=== PATIENT | male | born 1940 | race Caucasian/White ===

== ENCOUNTER 2017-07-19 16:18 | Inpatient (IN) ==
[2017-07-19] MEDS ORDERED: IOPAMIDOL 100 ML BOTTLE IV ONE (16:19)
[2017-07-19] MEDS ORDERED: DILTIAZEM 25 MG/5 ML VIAL IV ONE (16:41)
--- NOTE | 2017-07-19 16:43 | Emergency Department Note ---
General Adult HPI - General Chief complaint: Extremity Problem,Nontraumatic Stated complaint: Bilat and and leg pain Time Seen by Provider: 07/19/17 16:20 Source: patient, family Mode of arrival: ambulatory Limitations: no limitations - History of Present Illness HPI Narrative: This patient comes in with a complaint of pain in both arms and both legs and was found to be in atrial fibrillation which he was unaware of. He has never had that rhythm as far as he knows. He denies chest pain shortness of breath nausea. - Related Data Previous Rx's Medication Instructions Recorded metformin 500 mg tablet 500 mg PO BID #60 tab 05/05/16 metolazone 5 mg tablet 5 mg PO QDAY #30 tab 07/11/17 Allergies Allergy/AdvReac Type Severity Reaction Status Date / Time codeine Allergy Mild Unknown Verified 07/19/17 16:19 Review of Systems All systems ED: reviewed and negative except as stated. Past Medical History - Past Medical History [facility] Narrative: Medical History Bronchitis (Acute) Peripheral edema (Chronic) Hypokalemia (Acute) Tachycardia (Chronic) Pleural effusion (Chronic) Gout (Chronic) Dysmetabolic syndrome X (Chronic) Diabetes mellitus, type II (Chronic) Congestive heart failure (Chronic) Atrial fibrillation (Chronic) Past Surgical History No pertinent past surgical history (Chronic) Family History Mother Malignant neoplasm of brain Essential hypertension Father Malignant neoplasm of prostate Medical history: Reports: atrial fibrillation, CHF, DM, other - Social History smoking status: Former smoker Physical Exam Limitations: no limitations General appearance: alert Head: atraumatic Eye: Present: normal appearance ENT: normal exam Neck: Present: normal inspection Chest: Present: normal inspection Respiratory: Present: normal lung sounds bilaterally Cardiovascular: Present: regular rate, normal rhythm, normal heart sounds Abdominal: Present: soft. Absent: distention, tenderness Extremities: Present: pedal edema, pretibial edema Neurological: Present: alert Psychiatric: Present: normal affect, normal mood Skin: Present: warm, dry, intact Course Vital Signs Temperature 97.5 F 07/19/17 16:19 Pulse Rate 140 H 07/19/17 16:19 Respiratory Rate 16 07/19/17 16:19 Blood Pressure 137/80 07/19/17 16:19 Pulse Oximetry (%) 97 07/19/17 16:19 Temperature 97.5 F 07/19/17 16:19 Pulse Rate 140 H 07/19/17 16:19 Respiratory Rate 16 07/19/17 16:19 Blood Pressure 137/80 07/19/17 16:19 Pulse Oximetry (%) 97 07/19/17 16:19 Medical Decision Making - MDM Narrative Medical decision making narrative: CTA of chest was negative for PE and venous Doppler negative for DVT. Initial troponin was negative. Patient was started on diltiazem and his heart rate is maintained between 101 10. He will be admitted to the hospital. - Lab Data Lab results reviewed: Yes I reviewed the patient's lab results. Result diagrams: 07/19/17 16:48 07/19/17 16:48 Lab Results 07/19/17 07/19/17 07/19/17 Range/Units 16:48 16:48 16:48 WBC 10.3 (4.5-11.0) K/mcL RBC 4.42 L (4.50-5.90) M/mcL Hgb 12.4 L (13.5-16.5) g/dL Hct 37.6 L (41.0-55.0) % MCV 84.9 (80.0-100.0) fL MCH 28.2 (26.0-34.0) pg MCHC 33.1 (31.0-36.0) g/dL RDW 14.7 H (11.5-14.5) % Plt Count 399 (140-440) K/mcL MPV 7.3 L (7.4-10.4) fL Gran % 73.1 (38.0-78.0) % Lymph % (Auto) 8.8 L (15.5-49.0) % [place] % (Auto) 15.6 H (1.0-12.0) % Eos % (Auto) 2.3 (0.0-7.0) % Baso % (Auto) 0.2 (0.0-2.0) % Gran # 7.6 (1.8-8.0) K/mcL Lymph # (Auto) 0.9 L (1.5-4.8) K/mcL [place] # (Auto) 1.6 H (0.1-0.9) K/mcL Eos # (Auto) 0.2 (0.0-0.7) K/mcL Baso # (Auto) 0 (0.0-0.3) K/mcL D-Dimer 4.16 H (0.00-0.40) ug/ml Sodium 133 (133-145) mmol/L Potassium 3.3 (3.3-5.1) mmol/L Chloride 86 L (96-108) mmol/L Carbon Dioxide 32 H (22-30) mmol/L Anion Gap 15.0 (8-16) BUN 17 (8-23) mg/dl Creatinine 0.8 (0.7-1.2) mg/dl GFR Calculation 86 Glucose 85 (70-105) mg/dL Calcium 9.0 (8.6-10.4) mg/dl Total Bilirubin 0.6 (0.0-1.0) mg/dL AST 16 (0-37) U/l ALT 11 (0-40) U/l Alkaline Phosphatase 86 (39-117) U/L Troponin T (0-0.03) ng/ml NT-Pro-B Natriuret Pep 897.9 H (0-450) pg/ml Total Protein 7.4 (5.9-8.4) gm/dL Albumin 3.5 (3.2-5.2) gm/dL Globulin 3.9 H (2.2-3.7) gm/dL Albumin/Globulin Ratio 0.9 L (1.0-2.3) 07/19/17 Range/Units 16:48 WBC (4.5-11.0) K/mcL RBC (4.50-5.90) M/mcL Hgb (13.5-16.5) g/dL Hct (41.0-55.0) % MCV (80.0-100.0) fL MCH (26.0-34.0) pg MCHC (31.0-36.0) g/dL RDW (11.5-14.5) % Plt Count (140-440) K/mcL MPV (7.4-10.4) fL Gran % (38.0-78.0) % Lymph % (Auto) (15.5-49.0) % [place] % (Auto) (1.0-12.0) % Eos % (Auto) (0.0-7.0) % Baso % (Auto) (0.0-2.0) % Gran # (1.8-8.0) K/mcL Lymph # (Auto) (1.5-4.8) K/mcL [place] # (Auto) (0.1-0.9) K/mcL Eos # (Auto) (0.0-0.7) K/mcL Baso # (Auto) (0.0-0.3) K/mcL D-Dimer (0.00-0.40) ug/ml Sodium (133-145) mmol/L Potassium (3.3-5.1) mmol/L Chloride (96-108) mmol/L Carbon Dioxide (22-30) mmol/L Anion Gap (8-16) BUN (8-23) mg/dl Creatinine (0.7-1.2) mg/dl GFR Calculation Glucose (70-105) mg/dL Calcium (8.6-10.4) mg/dl Total Bilirubin (0.0-1.0) mg/dL AST (0-37) U/l ALT (0-40) U/l Alkaline Phosphatase (39-117) U/L Troponin T < 0.01 (0-0.03) ng/ml NT-Pro-B Natriuret Pep (0-450) pg/ml Total Protein (5.9-8.4) gm/dL Albumin (3.2-5.2) gm/dL Globulin (2.2-3.7) gm/dL Albumin/Globulin Ratio (1.0-2.3) - Radiology Data Radiology results reviewed: Yes I reviewed the patient's radiology results. Disposition Pt seen by [facility]/PA only: No Clinical Impression: Atrial fibrillation Disposition: Xfer As Inpt ([facility]) Condition: Fair Referrals: Joni Hanna PA-C [Primary Care Provider] - Time of Disposition: 19:58
[2017-07-19] MEDS ORDERED: DILTIAZEM 125 MG in DEXTROSE 5% IN WATER 100 ML IV SCH (16:45)
[2017-07-19] MEDS: fentaNYL 100 MCG/2 ML VIAL IV PRN ×3 (17:02→18:54)
--- NOTE | 2017-07-19 17:10 | XRay Report ---
CLINICAL INFORMATION: Atrial fibrillation COMPARISON: 12/05/2005 FINDINGS: Moderate cardiomegaly has increased. Mediastinum and pulmonary vessels are normal. Is minor atelectasis in the right base. Remainder the lungs are clear. No effusions IMPRESSION: Moderate cardiomegaly - increasing. No evidence CHF. Minor atelectasis right base Interpreted and Authenticated by: Cooepr Zhang 07/19/17
[2017-07-19 17:23] LABS: Basophils # (Auto) 0 K/mcL (0.0-0.3); Basophils % (Auto) 0.2 % (0.0-2.0); Eosinophils # (Auto) 0.2 K/mcL (0.0-0.7); Eosinophils % (Auto) 2.3 % (0.0-7.0); Granulocytes % (Auto) 73.1 % (38.0-78.0); Lymphocytes # (Auto) 0.9 K/mcL (1.5-4.8); Lymphocytes % (Auto) 8.8 % (15.5-49.0); Mean Cell Volume 84.9 fL (80.0-100.0); Mean Corpuscular HGB Conc 33.1 g/dL (31.0-36.0); Mean Corpuscular Hemoglobin 28.2 pg (26.0-34.0); Monocytes # (Auto) 1.6 K/mcL (0.1-0.9); Monocytes % (Auto) 15.6 % (1.0-12.0); Platelet Count 399 K/mcL (140-440); RBC 4.42 M/mcL (4.50-5.90); Red Cell Distribution Width 14.7 % (11.5-14.5)
[2017-07-19 17:48] LABS: ALT/SGPT 11 U/l (0-40); Albumin 3.5 gm/dL (3.2-5.2); Albumin/Globulin Ratio 0.9 (1.0-2.3); Alkaline Phosphatase 86 U/L (39-117); Blood Urea Nitrogen 17 mg/dl (8-23); proBNP 897.9 pg/ml (0-450)
--- NOTE | 2017-07-19 21:09 | Internal Med History&Physical ---
Medical - H&P: [facility] Patient information: Note initiated : 07/19/17 at 8:56 pm Service Date, if different from initiated Date: [] Patient: Lyle Burgos a 76 y/o M admitted on for Bilat and and leg pain. Chief Complaint: bilateral shoulder, arm and leg pain History of present illness: Mr. Burgos is a 76 year old M, who presented to the ED with complaint of inability and pain trying to elevate arms beyond shoulder height, and also noted heavy feeling of the lower extremities for the last few days. He denies any fever, chills or headaches. Patient appeared to be in atrial fibrillation with RVR in 130-140's, with BP 137 /80. He denied any CP, SOB or palpitations. ED course: Cardizem bolus and drip Venous doppler lower extremities CTA-chest Fentanyl IV for shoulder pain He has been fairly healthy except for edema of the lower extremities for which he was started on metolazone on 07/13. This has been a recurrent problem and he was on chlorthalidone before. He also has a history of pleural effusion a few years ago and had a thoracentesis done. Denies HTN, HL, CAD. Doesn't remember he was told he had atrial fib. EKG on file from 2016 shows afib with rate of 107. - Constitutional Constitutional: Absent: fatigue, fever(s), headache(s), night sweats - Cardiovascular Cardiovascular: Present: edema. Absent: chest pain, dyspnea on exertion, orthopnea - Respiratory Respiratory: Absent: dyspnea - Gastrointestinal Gastrointestinal: Absent: abdominal pain, heartburn, nausea - Genitourinary Genitourinary: Absent: dysuria, urinary frequency - Musculoskeletal Musculoskeletal: Present: myalgias - Psychiatric Psychiatric: Absent: depression Medical - H&P: H Medical history: Medical History Bronchitis (Acute) Peripheral edema (Chronic) Hypokalemia (Acute) Tachycardia (Chronic) Pleural effusion (Chronic) Gout (Chronic) Dysmetabolic syndrome X (Chronic) Diabetes mellitus, type II (Chronic) Congestive heart failure (Chronic) Atrial fibrillation (Chronic) Surgical history: Past Surgical History No pertinent past surgical history (Chronic) Social history: Lives with Functional capacity: independent ambulation Smoking status: Former smoker Have you smoked in the last 12 months: No Drug use: none Alcohol use: none Medical - H&P: Meds Home Medications Medication Instructions Recorded Confirmed Type metformin 500 mg tablet 500 mg PO BID #60 tab 05/05/16 07/11/17 Rx metolazone 5 mg tablet 5 mg PO QDAY #30 tab 07/11/17 07/11/17 Rx Allergies Allergy/AdvReac Type Severity Reaction Status Date / Time codeine Allergy Mild Unknown Verified 07/19/17 16:19 Medical - H&P: Exam - Constitutional Vitals: Temp Pulse Resp BP Pulse Ox 97.5 F 124 H 21 145/70 99 07/19/17 16:19 07/19/17 20:15 07/19/17 19:48 07/19/17 20:15 07/19/17 20:15 General appearance: no acute distress, obese - Head Head exam: Present: normal inspection - Respiratory Respiratory exam: Present: wheezes Additional comments: Minimal wheezes with minimal exertion - Cardiovascular Cardiovascular exam: Present: irregular rhythm, tachycardia - GI/Abdominal GI/Abdominal exam: Present: normal bowel sounds, soft - Rectal Rectal exam: Present: deferred - Extremities Exam Extremities exam: Present: pedal edema Medical - H&P: Reslt - Labs CBC & Chem 7: 07/19/17 16:48 07/19/17 16:48 Labs: Short CBC 07/19/17 Range/Units 16:48 WBC 10.3 (4.5-11.0) K/mcL Hgb 12.4 L (13.5-16.5) g/dL Hct 37.6 L (41.0-55.0) % Plt Count 399 (140-440) K/mcL BMP 07/19/17 16:48 Sodium 133 Potassium 3.3 Chloride 86 L Carbon Dioxide 32 H BUN 17 Creatinine 0.8 Glucose 85 Calcium 9.0 Cardiac Enzymes 07/19/17 Range/Units 16:48 Troponin T < 0.01 (0-0.03) ng/ml Liver Function 07/19/17 Range/Units 16:48 Total Bilirubin 0.6 (0.0-1.0) mg/dL AST 16 (0-37) U/l ALT 11 (0-40) U/l Alkaline Phosphatase 86 (39-117) U/L Albumin 3.5 (3.2-5.2) gm/dL Medical - H&P: A/P - Narrative A/P Narrative: 76-year-old admitted to tele unit with following problems: + Atrial Fibrillation with RVR Incidental finding. Patient is asymptomatic Diltiazem gtt Anticoagulation Check TSH, troponin, Echocardiogram + Bilateral upper arm and lower extremity myalgia and joint ache No headaches, fevers. Has been on diuretic and has hx of gout. Will check Uric acid level. DD polymyalgia. Check ESR, RA Generalized myalgia. Check CK level Will give acetaminophen, NSAIDS, Percocet prn + Hypokalemia due to diuretics Will replace, check Mg level + Peripheral edema and hx of chronic pleural effusion pro-BNP slightly elevated, CXR without evidence of CHF Hold diuretics for now, till uric acid checked ECHO pending DVT prophylaxis: Lovenox Code status: FULL
[2017-07-19 21:29] LABS: Appearance,Urine CLEAR; Bacteria,Urine 0 /hpf (0); Bilirubin,Urine NEG (NEG); Color,Urine STRAW; Glucose,Urine (UA) NEGATIVE (NEG); Leukocyte Esterase,Urine NEG /uL (NEG); Protein,Urine NEG (NEG); Specific Gravity,Urine 1.034 (1.000-1.035); Urine Blood NEG mg/dL (<0.03); Urine RBC < 1 /hpf (0-1); Urine Squamous Epithelial Cell < 1 /hpf (0-4); Urine WBC 0 /hpf (0-4); Urobilinogen,Urine NEG (NEG)
[2017-07-19] MEDS ORDERED: POTASSIUM CHLORIDE 20 MEQ TABLET PO ONE (21:59)
[2017-07-19] MEDS: DOCUSATE SODIUM 100 MG CAPSULE PO SCH (22:18)
[2017-07-19] MEDS: HYDROcodone/APAP 5/325MG TABLET PO PRN (22:18)
[2017-07-19] MEDS: 0.9 % SODIUM CHLORIDE 10 ML SYRINGE IV SCH (22:18)
[2017-07-20] MEDS: ACETAMINOPHEN 325 MG TABLET PO PRN (00:51)
[2017-07-20] MEDS: HYDROcodone/APAP 5/325MG TABLET PO PRN ×2 (02:11→06:50)
[2017-07-20] MEDS ORDERED: DILTIAZEM 125 MG in DEXTROSE 5% IN WATER 100 ML IV SCH (04:45)
[2017-07-20 05:48] LABS: ALT/SGPT 9 U/l (0-40); Albumin 3.3 gm/dL (3.2-5.2); Albumin/Globulin Ratio 0.9 (1.0-2.3); Alkaline Phosphatase 78 U/L (39-117); Bilirubin,Direct < 0.2 mg/dL (0.0-0.3); Blood Urea Nitrogen 16 mg/dl (8-23); Gamma Glutamyl Transpeptidase 42 U/L (8-61); HDL Cholesterol 35 mg/dl (>40); LDL Cholesterol,Calculated 63 mg/dl (SEE CHART); Uric Acid 6.6 mg/dL (2.5-8.0)
[2017-07-20 05:50] LABS: Basophils # (Auto) 0 K/mcL (0.0-0.3); Basophils % (Auto) 0.3 % (0.0-2.0); Eosinophils # (Auto) 0.3 K/mcL (0.0-0.7); Eosinophils % (Auto) 3.7 % (0.0-7.0); Granulocytes % (Auto) 71.2 % (38.0-78.0); Lymphocytes # (Auto) 0.9 K/mcL (1.5-4.8); Lymphocytes % (Auto) 10.1 % (15.5-49.0); Mean Cell Volume 84.7 fL (80.0-100.0); Mean Corpuscular HGB Conc 32.4 g/dL (31.0-36.0); Mean Corpuscular Hemoglobin 27.4 pg (26.0-34.0); Monocytes # (Auto) 1.3 K/mcL (0.1-0.9); Monocytes % (Auto) 14.7 % (1.0-12.0); Platelet Count 347 K/mcL (140-440); RBC 4.16 M/mcL (4.50-5.90); Red Cell Distribution Width 14.8 % (11.5-14.5)
[2017-07-20 05:54] LABS: Estimated Average Glucose(eAG) 128 mg/dL; Hemoglobin A1C 6.1 % HGB (4.0-6.0)
[2017-07-20] MEDS: 0.9 % SODIUM CHLORIDE 10 ML SYRINGE IV SCH ×3 (05:55→21:25)
[2017-07-20 06:08] LABS: Erythrocyte Sedimentation Rate 88 mm/hr (0-15)
--- NOTE | 2017-07-20 06:17 | Ultrasound Report ---
CLINICAL INFORMATION: Bilateral lower extremity pain and swelling elevated d-dimer COMPARISON: None. FINDINGS: The entire deep venous system, in both lower extremities, including the common femoral, superficial femoral, popliteal and paired trifurcation calf veins are easily compressible and show normal venous blood flow on color and spectral Doppler. No evidence of thrombus IMPRESSION: Negative exam - no evidence of deep vein thrombosis in either lower extremity. Interpreted and Authenticated by: Cooper Zhang 07/20/17
[2017-07-20] MEDS: PANTOPRAZOLE 40 MG TABLET PO SCH (06:50)
--- NOTE | 2017-07-20 06:55 | Cat Scan Report ---
CLINICAL INFORMATION: Dyspnea COMPARISON: 10/11/[address] with contrast. TECHNIQUE: 80 cc of Isovue-300 were injected intravenously. Using SmartPrep to maximize pulmonary artery opacification, 2.5 mm helical slices were obtained from the lung apices through the lung bases. Following reconstruction, 2.5 mm sagittal, coronal, and axial reformations were processed. The exam was reviewed at mediastinal, lung, and bone windows. The exam was performed using radiation dose optimization techniques including, but not limited to, automated exposure control, adjustment of the mA and/or kV according to patient size and use of iterative reconstruction technique. FINDINGS: The pulmonary arteries are normal in contour and caliber and are well opacified - no evidence of embolus. The thoracic aorta is also normal in diameter with minimal diffuse thickening. There is no adenopathy in the mediastinal hilar or axillary regions. The heart is mildly enlarged with asymmetric enlargement of the left atrium - increased from previous study. There is slight thickening of the mitral valve and minimal calcification: Mitral valve disease is suspected. Esophagus is unremarkable. Pulmonary parenchymal windows show only small amount bandlike scarring in the posterior left lower lobe with small focus of subsegmental cicitration bronchiectasis in the posterior basilar segmental region. This may predispose to future pneumonia. There is only minor scarring in the right base. Tiny left pleural effusion noted. Minimal chronic bronchitis is noted. Bones and soft tissues the chest wall are unremarkable IMPRESSION: 1. No evidence of pulmonary embolus 2. Moderate cardiomegaly with asymmetric enlargement of the left atrium suggestive of mitral valve disease. This would be better evaluated with echocardiogram 3. Stranding fibrosis in the posterior left lower lobe small focus of subsegmental cicitration bronchiectasis. This may predispose to future pneumonia Interpreted and Authenticated by: Cooper Zhang 07/20/17
[2017-07-20] MEDS ORDERED: predniSONE 20 MG TABLET PO ONE (07:37)
[2017-07-20] MEDS ORDERED: POTASSIUM CHLORIDE 20 MEQ TABLET PO ONE (08:00)
[2017-07-20] MEDS: DILTIAZEM 30 MG TABLET PO SCH ×3 (08:44→21:25)
[2017-07-20] MEDS: ENOXAPARIN 120 MG/0.8 ML SYRINGE SQ SCH ×2 (09:44→21:25)
[2017-07-20] MEDS: DOCUSATE SODIUM 100 MG CAPSULE PO SCH ×2 (09:44→21:25)
--- NOTE | 2017-07-20 12:59 | XRay Report ---
CLINICAL INFORMATION: Bilateral shoulder pain with limited range of motion COMPARISON: None. FINDINGS: There are mild degenerative change of both acromioclavicular joints. Glenohumeral joints are normal. No osseous abnormalities. Soft tissues normal. IMPRESSION: Mild degenerative change of both acromioclavicular joint Interpreted and Authenticated by: Cooper Zhang 07/20/17
[2017-07-20] MEDS: oxyCODONE HCL 5 MG TABLET PO PRN ×2 (14:12→20:21)
[2017-07-20] MEDS ORDERED: DILTIAZEM 125 MG in DEXTROSE 5% IN WATER 100 ML IV PRN (14:45)
--- NOTE | 2017-07-20 23:12 | Internal Med Progress Note ---
Medical - PN: Subj Patient information: Note initiated : 07/20/17 at 10:59 pm Service Date, if different from initiated Date: [] Patient: Lyle Burgos 76 y/o M admitted on 07/19/17 for Bilat Arm and Leg Pain/AFib with RVR. Interval history: 76-year-old male: 07/19 Admitted with following problems: + Atrial Fibrillation with RVR Incidental finding. Patient is asymptomatic Diltiazem gtt Anticoagulation Check TSH, troponin, Echocardiogram + Bilateral upper arm and lower extremity myalgia and joint ache No headaches, fevers. Has been on diuretic and has hx of gout. Will check Uric acid level. DD polymyalgia. Check ESR, RA Generalized myalgia. Check CK level Will give acetaminophen, NSAIDS, Percocet prn + Hypokalemia due to diuretics Will replace, check Mg level + Peripheral edema and hx of chronic pleural effusion pro-BNP slightly elevated, CXR without evidence of CHF Hold diuretics for now, till uric acid checked 07/19: Off Cardizem gtt as rate was < 100 Main complaints is upper arm pain and inability to lift beyond shoulder level. ESR 88 RA level 31 Uric acid wnl Echo showed dilated cardiomyopathy with mildly reduced LVEF Upper extremity achiness/myalgia possibly due to polymyalgia. Plan: cardizem po for afib trial of prednisone 07/20: Good pain relief with prednisone in combination with oxycodone. has fluid overload start IV lasix - Constitutional Vitals: Vital Signs Temp Pulse Resp BP Pulse Ox 97.9 F 92 H 18 148/66 96 07/20/17 20:21 07/20/17 20:21 07/20/17 20:21 07/20/17 20:21 07/20/17 20:21 Period Temp Pulse Resp BP Sys/Cool Pulse Ox Last 24 Hr 97.8 F-98.9 F 74-101 18-22 122-178/66-90 94-97 Intake and Output 07/20/17 07/20/17 07/21/17 13:59 21:59 05:59 Intake Total 420 / 420 440 / 440 Output Total 200 / 200 300 / 300 800 / 800 Balance 220 / 220 140 / 140 -800 / -800 Weight 257 lb Patient Weight 07/21/17 05:59 Weight 257 lb Intake & Output: Intake & Output 07/20/17 07/20/1718 13:59 21:59 05:59 Intake Total 420 / 420 440 / 440 Output Total 200 / 200 300 / 300 800 / 800 Balance 220 / 220 140 / 140 -800 / -800 Weight 257 lb Intake: Oral 420 / 420 440 / 440 Output: Void Amount 200 / 200 300 / 300 800 / 800 Other: Meal Breakfast Percent of Meal Consumed 100% Feeding Ability Assist with Tray Set Up # Voids 2 1 General appearance: mild distress - Head Head exam: Present: normal inspection - Respiratory Respiratory exam: Present: decreased breath sounds - Cardiovascular Cardiovascular exam: Present: irregular rhythm - GI/Abdominal GI/Abdominal exam: Present: normal bowel sounds, soft - Extremities Exam Extremities exam: Present: pedal edema Medical - PN: Obj Da - Labs CBC & Chem 7: 07/20/17 03:46 07/20/17 03:46 Labs: Abnormal Lab Results 07/20/17 07/20/17 07/20/17 03:46 03:46 03:46 RBC 4.16 L Hgb 11.4 L Hct 35.2 L RDW 14.8 H MPV 7.2 L Lymph % (Auto) 10.1 L [place] % (Auto) 14.7 H Lymph # (Auto) 0.9 L [place] # (Auto) 1.3 H ESR 88 H D-Dimer Potassium 3.2 L Chloride 89 L Carbon Dioxide 33 H Glucose 135 H Hemoglobin A1c 6.1 H NT-Pro-B Natriuret Pep Globulin Albumin/Globulin Ratio 0.9 L HDL Cholesterol Rheumatoid Factor 31 H 07/20/17 07/19/17 07/19/17 03:46 16:48 16:48 RBC Hgb Hct RDW MPV Lymph % (Auto) [place] % (Auto) Lymph # (Auto) [place] # (Auto) ESR D-Dimer 4.16 H Potassium Chloride 86 L Carbon Dioxide 32 H Glucose Hemoglobin A1c NT-Pro-B Natriuret Pep 897.9 H Globulin 3.9 H Albumin/Globulin Ratio 0.9 L HDL Cholesterol 35 L Rheumatoid Factor 07/19/17 16:48 RBC 4.42 L Hgb 12.4 L Hct 37.6 L RDW 14.7 H MPV 7.3 L Lymph % (Auto) 8.8 L [place] % (Auto) 15.6 H Lymph # (Auto) 0.9 L [place] # (Auto) 1.6 H ESR D-Dimer Potassium Chloride Carbon Dioxide Glucose Hemoglobin A1c NT-Pro-B Natriuret Pep Globulin Albumin/Globulin Ratio HDL Cholesterol Rheumatoid Factor Meds: Medications Acetaminophen (Tylenol) 650 mg PO Q6HP PRN PRN Reason: PAIN/FEVER > 101 Last Admin: 07/20/17 00:51 Dose: 650 mg Diltiazem HCl (Cardizem) 60 mg PO Q8 [facility] Last Admin: 07/20/17 21:25 Dose: 60 mg Docusate Sodium (Colace) 100 mg PO BID [facility] Last Admin: 07/20/17 21:25 Dose: 100 mg Enoxaparin Sodium (Lovenox) 120 mg SQ BID [facility] Last Admin: 07/20/17 21:25 Dose: 120 mg Furosemide (Lasix) 40 mg IV DAILY [facility] Morphine Sulfate (Morphine) 2 - 4 mg IV Q4HP PRN PRN Reason: PAIN LEVEL > 6 Oxycodone HCl (Roxicodone) 10 - 20 mg PO Q4HP PRN PRN Reason: PAIN LEVEL 3-6 Last Admin: 07/20/17 20:21 Dose: 10 mg Pantoprazole Sodium (Protonix) 40 mg PO QAMAC [facility] Last Admin: 07/20/17 06:50 Dose: 40 mg Potassium Chloride (Kdur) 40 meq PO DAILY [facility]one) [facility] Sodium Chloride (Saline Flush) 10 ml IV Q8 [facility] Last Admin: 07/20/17 21:25 Dose: 10 ml Medical - PN: A/P - Time Spent With Patient Total time spent is greater than 50% in coordination of care (as documented) at patient's floor/unit and/or counseling patient: 25 - 35 minutes - Narrative A/P Narrative: 76-year-old admitted to tele unit with following problems: + Atrial Fibrillation with RVR Incidental finding. Patient is asymptomatic Diltiazem gtt Anticoagulation Check TSH: wnl + Dilated cardiomyopathy with mildly reduced LVEF (on ECHO) + Bilateral upper arm and lower extremity myalgia and joint ache No headaches, fevers. ESR 88 RA level 31 Uric Acid and CK wnl DD polymyalgia Good pain relief and improved ROM with prednisone 40 mg + Hypokalemia due to diuretics Will replace, check Mg level + Peripheral edema and hx of chronic pleural effusion pro-BNP slightly elevated, CXR without evidence of CHF Echo showed less than 50% IVC collapse, suggestive of mild fluid overload Will give IV lasix Medical - PN: Qual - Stroke Symptom Onset Unknown: No - VTE Deep Vein Thrombosis/Pulmonary Embolism Present on Admission: No
[2017-07-21] MEDS: oxyCODONE HCL 5 MG TABLET PO PRN (03:04)
[2017-07-21] MEDS: DILTIAZEM 30 MG TABLET PO SCH ×3 (05:44→22:05)
[2017-07-21] MEDS: 0.9 % SODIUM CHLORIDE 10 ML SYRINGE IV SCH ×3 (05:44→22:05)
[2017-07-21] MEDS: PANTOPRAZOLE 40 MG TABLET PO SCH (06:48)
[2017-07-21] MEDS ORDERED: POTASSIUM CHLORIDE 20 MEQ TABLET PO SCH (08:00)
[2017-07-21] MEDS: predniSONE 20 MG TABLET PO SCH (08:13)
[2017-07-21] MEDS: DOCUSATE SODIUM 100 MG CAPSULE PO SCH ×2 (08:13→22:05)
[2017-07-21] MEDS: ENOXAPARIN 120 MG/0.8 ML SYRINGE SQ SCH (08:13)
[2017-07-21] MEDS ORDERED: FUROSEMIDE 40 MG/4 ML VIAL IV SCH (09:00)
[2017-07-21 13:12] LABS: ALT/SGPT 13 U/l (0-40); Albumin 3.7 gm/dL (3.2-5.2); Albumin/Globulin Ratio 0.9 (1.0-2.3); Alkaline Phosphatase 87 U/L (39-117); Bilirubin,Direct < 0.2 mg/dL (0.0-0.3); Blood Urea Nitrogen 21 mg/dl (8-23); Gamma Glutamyl Transpeptidase 85 U/L (8-61); Uric Acid 7.9 mg/dL (2.5-8.0)
[2017-07-21] MEDS: ACETAMINOPHEN 325 MG TABLET PO PRN (19:05)
--- NOTE | 2017-07-21 20:31 | Internal Med Progress Note ---
Medical - PN: Subj Patient information: Note initiated : 07/21/17 at 8:26 pm Service Date, if different from initiated Date: [] Patient: Lyle Burgos 76 y/o M admitted on 07/19/17 for Bilat Arm and Leg Pain/AFib with RVR. Interval history: 76-year-old male: 07/19 Admitted with following problems: + Atrial Fibrillation with RVR Incidental finding. Patient is asymptomatic Diltiazem gtt Anticoagulation Check TSH, troponin, Echocardiogram + Bilateral upper arm and lower extremity myalgia and joint ache No headaches, fevers. Has been on diuretic and has hx of gout. Will check Uric acid level. DD polymyalgia. Check ESR, RA Generalized myalgia. Check CK level Will give acetaminophen, NSAIDS, Percocet prn + Hypokalemia due to diuretics Will replace, check Mg level + Peripheral edema and hx of chronic pleural effusion pro-BNP slightly elevated, CXR without evidence of CHF Hold diuretics for now, till uric acid checked 07/19: Off Cardizem gtt as rate was < 100 Main complaints is upper arm pain and inability to lift beyond shoulder level. ESR 88 RA level 31 Uric acid wnl Echo showed dilated cardiomyopathy with mildly reduced LVEF Upper extremity achiness/myalgia possibly due to polymyalgia. Plan: cardizem po for afib trial of prednisone 07/20: Good pain relief with prednisone in combination with oxycodone. has fluid overload start IV lasix 07/21: Feeling much better. Stronger and improved ROM in shoulder Good diuresis on Lasix Rate well controlled in 100's Echo result noted. - Constitutional Vitals: Vital Signs Temp Pulse Resp BP Pulse Ox 97.6 F 92 H 16 137/88 93 07/21/17 15:28 07/20/17 20:21 07/21/17 15:28 07/21/17 15:28 07/21/17 15:28 Period Temp Pulse Resp BP Sys/Cool Pulse Ox Last 24 Hr 97.1 F-98.5 F 16-20 127-137/78-93 93-95 Intake and Output 07/21/17 07/21/17 07/21/17 05:59 13:59 21:59 Intake Total 300 / 300 100 / 100 Output Total 1100 / 1100 400 / 400 800 / 800 Balance -1100 / -1100 -100 / -100 -700 / -700 Weight 257 lb Patient Weight 07/22/17 05:59 Weight 257 lb Intake & Output: Intake & Output 07/21/17 07/21/17 07/21/17 05:59 13:59 21:59 Intake Total 300 / 300 100 / 100 Output Total 1100 / 1100 400 / 400 800 / 800 Balance -1100 / -1100 -100 / -100 -700 / -700 Weight 257 lb Intake: Oral 300 / 300 100 / 100 Output: Urine Catheter Amount 400 / 400 Void Amount 1100 / 1100 800 / 800 Other: Meal Breakfast Percent of Meal Consumed 100% Stool Size Large Stool Color Brown Bright Red Blood Stool Consistency Dry and Hard # Voids 400 1 General appearance: no acute distress, obese - Respiratory Respiratory exam: Present: normal respiratory exam - Cardiovascular Cardiovascular exam: Present: irregular rhythm - GI/Abdominal GI/Abdominal exam: Present: normal bowel sounds - Extremities Exam Extremities exam: Present: pedal edema Medical - PN: Obj Da - Labs CBC & Chem 7: 07/20/17 03:46 07/21/17 12:14 Labs: Abnormal Lab Results 07/21/17 07/20/17 07/20/17 12:14 03:46 03:46 RBC Hgb Hct RDW MPV Lymph % (Auto) [place] % (Auto) Lymph # (Auto) [place] # (Auto) ESR D-Dimer Potassium 3.2 L Chloride 87 L 89 L Carbon Dioxide 33 H 33 H Glucose 147 H 135 H Hemoglobin A1c 6.1 H GGT 85 H Lactate Dehydrogenase 288 H NT-Pro-B Natriuret Pep Globulin 4.2 H Albumin/Globulin Ratio 0.9 L 0.9 L HDL Cholesterol Rheumatoid Factor 31 H 07/20/17 07/20/17 07/19/17 03:46 03:46 16:48 RBC 4.16 L Hgb 11.4 L Hct 35.2 L RDW 14.8 H MPV 7.2 L Lymph % (Auto) 10.1 L [place] % (Auto) 14.7 H Lymph # (Auto) 0.9 L [place] # (Auto) 1.3 H ESR 88 H D-Dimer Potassium Chloride 86 L Carbon Dioxide 32 H Glucose Hemoglobin A1c GGT Lactate Dehydrogenase NT-Pro-B Natriuret Pep 897.9 H Globulin 3.9 H Albumin/Globulin Ratio 0.9 L HDL Cholesterol 35 L Rheumatoid Factor 07/19/17 07/19/17 16:48 16:48 RBC 4.42 L Hgb 12.4 L Hct 37.6 L RDW 14.7 H MPV 7.3 L Lymph % (Auto) 8.8 L [place] % (Auto) 15.6 H Lymph # (Auto) 0.9 L [place] # (Auto) 1.6 H ESR D-Dimer 4.16 H Potassium Chloride Carbon Dioxide Glucose Hemoglobin A1c GGT Lactate Dehydrogenase NT-Pro-B Natriuret Pep Globulin Albumin/Globulin Ratio HDL Cholesterol Rheumatoid Factor Meds: Medications Acetaminophen (Tylenol) 650 mg PO Q6HP PRN PRN Reason: PAIN/FEVER > 101 Last Admin: 07/21/17 19:05 Dose: 650 mg Dabigatran (Pradaxa) 150 mg PO BID [facility] Diltiazem HCl (Cardizem) 60 mg PO Q8 [facility] Stop: 07/21/17 23:59 Last Admin: 07/21/17 13:40 Dose: 60 mg Diltiazem HCl (Cardizem Cd) 180 mg PO DAILY [facility] Docusate Sodium (Colace) 100 mg PO BID [facility] Last Admin: 07/21/17 08:13 Dose: 100 mg Furosemide (Lasix) 40 mg IV DAILY [facility] Morphine Sulfate (Morphine) 2 - 4 mg IV Q4HP PRN PRN Reason: PAIN LEVEL > 6 Oxycodone HCl (Roxicodone) 10 - 20 mg PO Q4HP PRN PRN Reason: PAIN LEVEL 3-6 Last Admin: 07/21/17 03:04 Dose: 10 mg Pantoprazole Sodium (Protonix) 40 mg PO [facility] Last Admin: 07/21/17 06:48 Dose: 40 mg Prednisone (Prednisone) 40 mg PO [facility] Last Admin: 07/21/17 08:13 Dose: 40 mg Sodium Chloride (Saline Flush) 10 ml IV Q8 [facility] Last Admin: 07/21/17 14:52 Dose: 10 ml Medical - PN: A/P - Time Spent With Patient Total time spent is greater than 50% in coordination of care (as documented) at patient's floor/unit and/or counseling patient: 15 - 24 minutes - Narrative A/P Narrative: 76-year-old admitted to tele unit with following problems: + Atrial Fibrillation with RVR Incidental finding. Patient is asymptomatic Diltiazem gtt Anticoagulation Check TSH: wnl 07/21: TSH wnl. On cardizem po. + Dilated cardiomyopathy with mildly reduced LVEF (on ECHO) + Bilateral upper arm and lower extremity myalgia and joint ache No headaches, fevers. ESR 88 RA level 31 Uric Acid and CK wnl DD polymyalgia Good pain relief and improved ROM with prednisone 40 mg + Hypokalemia due to diuretics Will replace, check Mg level + Peripheral edema and hx of chronic pleural effusion pro-BNP slightly elevated, CXR without evidence of CHF Echo showed less than 50% IVC collapse, suggestive of mild fluid overload Will give IV lasix + Borderline DM Will need to make dietary changes and FU with PCP Tentative discharge home in am: Cardizem XL Prednisone Lasix Medical - PN: Qual - Stroke Symptom Onset Unknown: No - VTE Deep Vein Thrombosis/Pulmonary Embolism Present on Admission: No
[2017-07-21] MEDS: DABIGATRAN ETEXILATE MESYLATE 75 MG CAPSULE PO SCH (22:05)
[2017-07-22] MEDS: FUROSEMIDE 40 MG/4 ML VIAL IV SCH ×2 (05:34→08:44)
[2017-07-22] MEDS: 0.9 % SODIUM CHLORIDE 10 ML SYRINGE IV SCH ×2 (05:34→07:24)
--- NOTE | 2017-07-22 06:34 | Discharge Summary ---
Medical - DS: Prov Patient information: Note initiated : 07/22/17 at 6:30 am Service Date, if different from initiated Date: [] Patient: Lyle Burgos 76 y/o M admitted on 07/19/17 for Bilat Arm and Leg Pain/AFib with RVR. Date of admission: 07/19/17 21:40 Discharge date: 07/22/17 Primary care physician: Joni Hanna Consults: 07/19/17 19:51 Consult to Physician [CONS] Stat Comment: Consulting Provider: Myles Branch Reason For Exam: Physician to Consult Medical - DS: Meds - Discharge Medications Prescriptions: Dabigatran Etexilate Mesylate [Pradaxa] 150 mg PO BID #90 capsule Diltiazem HCl [Diltiazem 24Hr Cd] 240 mg PO DAILY 30 Days #90 cap.er.24h Furosemide [Lasix] 40 mg PO DAILY #90 tablet oxyCODONE HCL [Roxicodone] 5 - 10 mg PO Q4HP PRN #30 tablet PRN Reason: Pain Level 3-6 Pantoprazole [Protonix] 40 mg PO QAMAC #90 tablet predniSONE [Prednisone] 40 mg PO QAMCC #90 tablet Active and Home Medications: PLEASE, DISCONTINUE Home Medications metolazone 5 mg tablet 5 mg PO QDAY #30 tab 07/11/17 [Rx Confirmed 07/19/17 Last Taken Unknown] Medical - DS: Hosp Hospital course: History of present illness: Mr. Burgos is a 76 year old M, who presented to the ED with complaint of inability and pain trying to elevate arms beyond shoulder height, and also noted heavy feeling of the lower extremities for the last few days. He denies any fever, chills or headaches. Patient appeared to be in atrial fibrillation with RVR in 130-140's, with BP 137 /80. He denied any CP, SOB or palpitations. ED course: Cardizem bolus and drip Venous doppler lower extremities CTA-chest Fentanyl IV for shoulder pain He has been fairly healthy except for edema of the lower extremities for which he was started on metolazone on 07/13. This has been a recurrent problem and he was on chlorthalidone before. He also has a history of pleural effusion a few years ago and had a thoracentesis done. Denies HTN, HL, CAD. ECG from 2016 showed atrial fibrillation. Hospital Course: 07/19 Admitted with following problems: + Atrial Fibrillation with RVR Incidental finding. Patient is asymptomatic Diltiazem gtt Anticoagulation Check TSH, troponin, Echocardiogram + Bilateral upper arm and lower extremity myalgia and joint ache No headaches, fevers. Has been on diuretic and has hx of gout. Will check Uric acid level. DD polymyalgia. Check ESR, RA Generalized myalgia. Check CK level Will give acetaminophen, NSAIDS, Percocet prn + Hypokalemia due to diuretics Will replace, check Mg level + Peripheral edema and hx of chronic pleural effusion pro-BNP slightly elevated, CXR without evidence of CHF Hold diuretics for now, till uric acid checked 07/19: Off Cardizem gtt as rate was < 100 Main complaints is upper arm pain and inability to lift beyond shoulder level. ESR 88 RA level 31 Uric acid wnl Echo showed dilated cardiomyopathy with mildly reduced LVEF Upper extremity achiness/myalgia possibly due to polymyalgia. Plan: cardizem po for afib trial of prednisone 07/20: Good pain relief with prednisone in combination with oxycodone. has fluid overload start IV lasix 07/21: Feeling much better. Stronger and improved ROM in shoulder Good diuresis on Lasix Rate well controlled in 100's Echo result noted. 07/22: Much improved. HR around 90's SBP 120-140 Echo result: dilated cardiomyopathy with mildly reduced LVEF. A1C: 6 Patient has been resistant taking any meds. He will now be started on Cardizem, Dabigatran, Lasix for atrial fibrillation and edema, also on Prednisone and Protonix for presumed polymyalgia. He will need close follow-up and meds adjusted. Statin should be added, and most likely DM meds as he has elevated A1C. Extensive counseling and medication reconciliation done in [id number] encounter. Discharge diagnosis: atrial fibrillation with RVR, dilated cardiomyopathy, polymyagia Secondary discharge diagnosis: Diabetes Mellitus (newly diagnosed, will start on diet) Obesity Reason for admission: Atrial fibrillation with RVR - Time Spent with Patient Total time spent providing and/or coordinating discharge services: Greater than 30 minutes Medical - DS: Exam - Constitutional Vitals: Vital Signs Temp Pulse Resp BP Pulse Ox 07/22/17 04:54 97.4 F 18 144/92 97 07/22/17 00:22 20 92 07/21/17 20:00 97.5 F 80 18 122/68 95 07/21/17 15:28 97.6 F 16 137/88 93 07/21/17 11:48 97.7 F 16 137/93 94 07/21/17 07:25 97.3 F 16 137/81 95 Intake and Output 07/21/17 07/22/17 07/22/17 21:59 05:59 13:59 Intake Total 100 / 100 420 / 420 300 / 300 Output Total 800 / 800 900 / 900 Balance -700 / -700 -480 / -480 300 / 300 Intake: Oral 100 / 100 420 / 420 300 / 300 Output: Void Amount 800 / 800 900 / 900 Other: # Voids 1 Weight 258 lb General appearance: no acute distress, obese - Respiratory Respiratory exam: Present: normal respiratory exam - Cardiovascular Cardiovascular exam: Present: irregular rhythm - GI/Abdominal GI/Abdominal exam: Present: normal bowel sounds, soft - Extremities Exam Extremities exam: Present: pedal edema (mild) Medical - DS: Data Procedures and tests throughout hospitalization: ECHO: mild concentric LVH LVED mildly reduced RV mildly dilated LA and RA are severely dilated mild MR Rheumatoid Factor 31 (0-14) ESR 88 Uric acid wnl CK wnl A1C: 6.1 Lipid profile: wnl Labs on day of discharge: Labs from last 24 hours 07/21/17 12:14 Sodium 134 Potassium 4.1 Chloride 87 L Carbon Dioxide 33 H Anion Gap 14.0 BUN 21 Creatinine 0.8 GFR Calculation 86 Glucose 147 H Uric Acid 7.9 Calcium 9.6 Phosphorus 3.1 Magnesium 2.1 Total Bilirubin 0.6 Direct Bilirubin < 0.2 GGT 85 H AST 23 ALT 13 Alkaline Phosphatase 87 Lactate Dehydrogenase 288 H Total Protein 7.9 Albumin 3.7 Globulin 4.2 H Albumin/Globulin Ratio 0.9 L Triglycerides 81 Laboratory Results - last 72 hr 07/19/17 07/19/17 07/19/17 16:48 16:48 16:48 WBC 10.3 RBC 4.42 L Hgb 12.4 L Hct 37.6 L MCV 84.9 MCH 28.2 MCHC 33.1 RDW 14.7 H Plt Count 399 MPV 7.3 L Gran % 73.1 Lymph % (Auto) 8.8 L [place] % (Auto) 15.6 H Eos % (Auto) 2.3 Baso % (Auto) 0.2 Gran # 7.6 Lymph # (Auto) 0.9 L [place] # (Auto) 1.6 H Eos # (Auto) 0.2 Baso # (Auto) 0 ESR D-Dimer 4.16 H Sodium 133 Potassium 3.3 Chloride 86 L Carbon Dioxide 32 H Anion Gap 15.0 BUN 17 Creatinine 0.8 GFR Calculation 86 Glucose 85 Hemoglobin A1c Estim Average Glucose Uric Acid Calcium 9.0 Phosphorus Magnesium Total Bilirubin 0.6 Direct Bilirubin GGT AST 16 ALT 11 Alkaline Phosphatase 86 Lactate Dehydrogenase Total Creatine Kinase Troponin T NT-Pro-B Natriuret Pep 897.9 H Total Protein 7.4 Albumin 3.5 Globulin 3.9 H Albumin/Globulin Ratio 0.9 L Triglycerides Cholesterol LDL Cholesterol, Calc Non-HDL Cholesterol HDL Cholesterol TSH Urine Color Urine Appearance Urine pH Ur Specific [place] Urine Protein Urine Glucose (UA) Urine Ketones Urine Occult Blood Urine Nitrate Urine Bilirubin Urine Urobilinogen Ur Leukocyte Esterase Urine RBC Urine WBC Ur Squamous Epith Cells Urine Bacteria Ur Culture Indicated? Rheumatoid Factor 07/19/17 07/19/17 07/19/17 16:48 16:48 20:50 WBC RBC Hgb Hct MCV MCH MCHC RDW Plt Count MPV Gran % Lymph % (Auto) [place] % (Auto) Eos % (Auto) Baso % (Auto) Gran # Lymph # (Auto) [place] # (Auto) Eos # (Auto) Baso # (Auto) ESR D-Dimer Sodium Potassium Chloride Carbon Dioxide Anion Gap BUN Creatinine GFR Calculation Glucose Hemoglobin A1c Estim Average Glucose Uric Acid Calcium Phosphorus Magnesium Total Bilirubin Direct Bilirubin GGT AST ALT Alkaline Phosphatase Lactate Dehydrogenase Total Creatine Kinase 30 Troponin T < 0.01 NT-Pro-B Natriuret Pep Total Protein Albumin Globulin Albumin/Globulin Ratio Triglycerides Cholesterol LDL Cholesterol, Calc Non-HDL Cholesterol HDL Cholesterol TSH Urine Color Straw Urine Appearance Clear Urine pH 6.0 Ur Specific [place] 1.034 Urine Protein Neg Urine Glucose (UA) Negative Urine Ketones Neg Urine Occult Blood Neg Urine Nitrate Neg Urine Bilirubin Neg Urine Urobilinogen Neg Ur Leukocyte Esterase Neg Urine RBC < 1 Urine WBC 0 Ur Squamous Epith Cells < 1 Urine Bacteria 0 Ur Culture Indicated? No Rheumatoid Factor 07/19/17 07/19/17 07/20/17 22:13 22:13 03:46 WBC RBC Hgb Hct MCV MCH MCHC RDW Plt Count MPV Gran % Lymph % (Auto) [place] % (Auto) Eos % (Auto) Baso % (Auto) Gran # Lymph # (Auto) [place] # (Auto) Eos # (Auto) Baso # (Auto) ESR D-Dimer Sodium Potassium Chloride Carbon Dioxide Anion Gap BUN Creatinine GFR Calculation Glucose Hemoglobin A1c Estim Average Glucose Uric Acid Calcium Phosphorus Magnesium 1.8 Total Bilirubin Direct Bilirubin GGT AST ALT Alkaline Phosphatase Lactate Dehydrogenase Total Creatine Kinase Troponin T < 0.01 < 0.01 NT-Pro-B Natriuret Pep Total Protein Albumin Globulin Albumin/Globulin Ratio Triglycerides Cholesterol LDL Cholesterol, Calc Non-HDL Cholesterol HDL Cholesterol TSH 1.43 Urine Color Urine Appearance Urine pH Ur Specific [place] Urine Protein Urine Glucose (UA) Urine Ketones Urine Occult Blood Urine Nitrate Urine Bilirubin Urine Urobilinogen Ur Leukocyte Esterase Urine RBC Urine WBC Ur Squamous Epith Cells Urine Bacteria Ur Culture Indicated? Rheumatoid Factor 07/20/17 07/20/17 07/20/17 03:46 03:46 03:46 WBC 8.7 RBC 4.16 L Hgb 11.4 L Hct 35.2 L MCV 84.7 MCH 27.4 MCHC 32.4 RDW 14.8 H Plt Count 347 MPV 7.2 L Gran % 71.2 Lymph % (Auto) 10.1 L [place] % (Auto) 14.7 H Eos % (Auto) 3.7 Baso % (Auto) 0.3 Gran # 6.2 Lymph # (Auto) 0.9 L [place] # (Auto) 1.3 H Eos # (Auto) 0.3 Baso # (Auto) 0 ESR 88 H D-Dimer Sodium 133 Potassium 3.2 L Chloride 89 L Carbon Dioxide 33 H Anion Gap 11.0 BUN 16 Creatinine 0.8 GFR Calculation 86 Glucose 135 H Hemoglobin A1c 6.1 H Estim Average Glucose 128 Uric Acid 6.6 Calcium 8.9 Phosphorus 3.2 Magnesium 1.9 Total Bilirubin 0.7 Direct Bilirubin < 0.2 GGT 42 AST 14 ALT 9 Alkaline Phosphatase 78 Lactate Dehydrogenase 184 Total Creatine Kinase Troponin T NT-Pro-B Natriuret Pep Total Protein 6.9 Albumin 3.3 Globulin 3.6 Albumin/Globulin Ratio 0.9 L Triglycerides 74 74 Cholesterol 112 LDL Cholesterol, Calc 63 Non-HDL Cholesterol 77 HDL Cholesterol 35 L TSH Urine Color Urine Appearance Urine pH Ur Specific [place] Urine Protein Urine Glucose (UA) Urine Ketones Urine Occult Blood Urine Nitrate Urine Bilirubin Urine Urobilinogen Ur Leukocyte Esterase Urine RBC Urine WBC Ur Squamous Epith Cells Urine Bacteria Ur Culture Indicated? Rheumatoid Factor 07/20/17 07/20/17 07/21/17 03:46 10:00 12:14 WBC RBC Hgb Hct MCV MCH MCHC RDW Plt Count MPV Gran % Lymph % (Auto) [place] % (Auto) Eos % (Auto) Baso % (Auto) Gran # Lymph # (Auto) [place] # (Auto) Eos # (Auto) Baso # (Auto) ESR D-Dimer Sodium 134 Potassium 4.1 Chloride 87 L Carbon Dioxide 33 H Anion Gap 14.0 BUN 21 Creatinine 0.8 GFR Calculation 86 Glucose 147 H Hemoglobin A1c Estim Average Glucose Uric Acid 7.9 Calcium 9.6 Phosphorus 3.1 Magnesium 2.1 Total Bilirubin 0.6 Direct Bilirubin < 0.2 GGT 85 H AST 23 ALT 13 Alkaline Phosphatase 87 Lactate Dehydrogenase 288 H Total Creatine Kinase Troponin T < 0.01 NT-Pro-B Natriuret Pep Total Protein 7.9 Albumin 3.7 Globulin 4.2 H Albumin/Globulin Ratio 0.9 L Triglycerides 81 Cholesterol LDL Cholesterol, Calc Non-HDL Cholesterol HDL Cholesterol TSH Urine Color Urine Appearance Urine pH Ur Specific [place] Urine Protein Urine Glucose (UA) Urine Ketones Urine Occult Blood Urine Nitrate Urine Bilirubin Urine Urobilinogen Ur Leukocyte Esterase Urine RBC Urine WBC Ur Squamous Epith Cells Urine Bacteria Ur Culture Indicated? Rheumatoid Factor 31 H - Additional Comments CTA-chest: IMPRESSION: 1. No evidence of pulmonary embolus 2. Moderate cardiomegaly with asymmetric enlargement of the left atrium suggestive of mitral valve disease. This would be better evaluated with echocardiogram 3. Stranding fibrosis in the posterior left lower lobe small focus of subsegmental cicitration bronchiectasis. This may predispose to future pneumonia X-ray Shoulder Bilateral: IMPRESSION: Mild degenerative change of both acromioclavicular joint Medical - DS: A/P - Patient/Caregiver Discharge Instructions Activity: increase activity as tolerated Diet: Cardiac (no added salt, limit fried food and snacks), Consistent Carbohydrate (limit to 1800 - 2000 randal) Additional Instructions: Diet: healthy cardiac diet. No added salt. Avoid concentrated sweets (cookies, soft drinks, fried food). Smaller portions meal. Goal is maintaining or losing weight and avoid need to take meds for diabetes mellitus. Be aware that being on Prednisone increase your appetite and blood sugar level. Watch fluid intake. Limit to 2-3 quartz. Weigh daily in am. Seek medical advice if increase in weight from-day-to day for 3 or more days, or more SOB Daily walks 20-30 minutes Prescriptions: Dabigatran Etexilate Mesylate [Pradaxa] 150 mg PO BID #90 capsule Diltiazem HCl [Diltiazem 24Hr Cd] 240 mg PO DAILY 30 Days #90 cap.er.24h Furosemide [Lasix] 40 mg PO DAILY #90 tablet oxyCODONE HCL [Roxicodone] 5 - 10 mg PO Q4HP PRN #30 tablet PRN Reason: Pain Level 3-6 Pantoprazole [Protonix] 40 mg PO QAMAC #90 tablet predniSONE [Prednisone] 40 mg PO QAMCC #90 tablet Other Amb Orders: Renal Function Panel Time Frame: 1 Week, Location: lab - Problem Maintenance (1) Atrial fibrillation with rapid ventricular response Status: Acute (2) Polymyalgia Status: Acute (3) Obesity (BMI 30-39.9) Status: Chronic - Follow up Plan Follow up with: Joni Hanna PA-C [Primary Care Provider] - 07/27/17 9:30 am Disposition: Home, Self-Care Prognosis: Fair Rehab Potential: Fair Medical - DS: Qual - VTE Deep Vein Thrombosis/Pulmonary Embolism Present on Admission: No
[2017-07-22] MEDS: PANTOPRAZOLE 40 MG TABLET PO SCH (07:21)
[2017-07-22] MEDS: predniSONE 20 MG TABLET PO SCH (08:44)
[2017-07-22] MEDS: DOCUSATE SODIUM 100 MG CAPSULE PO SCH (08:44)
[2017-07-22] MEDS: DABIGATRAN ETEXILATE MESYLATE 75 MG CAPSULE PO SCH (08:44)
[2017-07-22] MEDS ORDERED: DILTIAZEM 240 MG CAP.XL.24H PO SCH (09:00)
[2017-07-22] MEDS ORDERED: DILTIAZEM 180 MG CAP.XL.24H PO SCH ×2 (09:00)
== END 2017-07-22 11:40 | disposition home or self-care (01) | DRG 310 ==
LOC: ED 16:18 → ICU 21:40
PROVIDERS: ADMIT Specialist; ATTEND Specialist